=== PATIENT | female | born 1960 | race African-American/Black ===

== ENCOUNTER 2017-07-23 13:35 | Outpatient (CLI) | payer OTHER ==
--- NOTE | 2017-07-23 15:59 | RAD ---
LUMBAR SPINE FOUR VIEWS: 07/23/17 HISTORY: 56-year-old female with lumbar radiculopathy and chronic low back pain with pain in legs and hips wit h back spasms. Disc spaces are adequately preserved. No evidence for fracture or dislocation or significant malalign ment. No evidence of abnormal translation between flexion and extension. No acute compression fractur e. IMPRESSION: Minimal changes of spondylosis. No fracture or dislocation. POS: [facility]
--- NOTE | 2017-07-23 16:02 | RAD ---
LATERAL, FLEXION, EXTENSION AND AP VIEWS CERVICAL SPINE IS OBTAINED 07/23/17 Cervical spine radiographs demonstrate fusion of the C4, C5 and C6 vertebrae. There is ACDF with plat e and screws across the anterior aspect of the C5-6 disc space. The C4-5 level appears to have previo usly been fused. Small anterior osteophytes seen along the anterior aspect of C3-4 and to a lesser degree the C6-7 dis c space. No acute fracture is seen. No significant amaury or retrolisthesis seen on flexion or extens ion views. IMPRESSION: C4, C5 and C6 cervical spine fusion. POS: [facility]
--- NOTE | 2017-07-23 21:59 | MRI ---
EXAM: MRI CERVICAL SPINE WITH AND WITHOUT CONTRAST 07/23/17 HISTORY: Cervical stenosis. C5-C6 fusion. Chronic neck pain, radiating down both arms. COMPARISON: None. TECHNIQUE: Cervical spine MRI is performed with and without intravenous gadolinium administration. Multisequenti al, multiplanar imaging is performed. FINDINGS: Anterior fusion changes at C5-C6 with associated metallic susceptibility artifact. Remaining cervical vertebrae have appropriate narrow signal intensity. No evidence of fracture. No significant STIR hyp erintensity to suggest edema or ligamentous injury. No abnormal enhancement. Visualized brain parenchyma, cervicomedullary junction, cervical cord and the upper thoracic cord hav e a normal size and signal intensity. On the postcontrast images, there is no abnormal enhancement of the cord. C2-C3: Central disc osteophyte complex abutting the ventral thecal sac. No significant mass effect up on the cervical cord. No high grade central canal stenosis. Neural foramina are patent. C3-C4: Broad based disc osteophyte complex with a central component. There is deformity of the ventra l thecal sac and mild deformity of the cord. No T2 hyperintensity of the cord. Mild central canal rd nosis. Degenerative changes in bilateral uncovertebral joints results in moderate bilateral foraminal narrowing. C4-C5: Broad based disc osteophyte complex abuts the thecal sac. Mild central canal stenosis. No T2 h yperintensity of the cord. Neural foramina are patent bilaterally. C5-C6: Broad based disc osteophyte complex. Ventral subarachnoid space is effaced. Mild central canal stenosis. Degenerative changes in bilateral uncovertebral joints result in moderate bilateral forami nal narrowing. C6-C7: Disc osteophyte complex abuts the thecal sac. Ventral subarachnoid space is effaced. Mild to m oderate central canal stenosis. No T2 hyperintensity in the cord. Degenerative changes in bilateral u ncovertebral joints results in mild bilateral foraminal narrowing. C7-T1: No significant disc osteophyte complex. No significant central canal stenosis. Foramina are pa tent. The left vertebral artery flow void is not appreciated. IMPRESSION: 1. Postsurgical changes and degenerative changes of the cervical spine as above. 2. Absent left vertebral artery flow void. Left vertebral body occlusion cannot be excluded. POS: [facility]
--- NOTE | 2017-07-23 22:05 | MRI ---
EXAM: THORACIC SPINE MRI WITHOUT CONTRAST 07/23/17 HISTORY: Chronic back pain radiating down both arms. COMPARISON: None. TECHNIQUE: Thoracic spine MRI is performed without intravenous gadolinium administration. Multisequential, multi planar imaging is performed. FINDINGS: An appropriate T1 marrow signal intensity of the thoracic vertebra. Thoracic spine vertebral body hei ght is maintained. There is no fracture. There is T1 hypointensity with associated T2 and STIR hyperi ntensity involving the right aspect of the T10 vertebral body. No significant STIR hyperintensity to suggest edema or ligamentous injury due to fracture. Visualized mediastinal structures are unremarkable. Visualized lung parenchyma and solid organs are u nremarkable. Thyroid gland appears to be slightly heterogeneous. The thoracic cord has an overall normal size and signal intensity. No significant stenosis. Conus med ullaris terminates at the T12-L1 disc space. Throughout the thoracic spine, no high grade central canal stenosis or high grade foraminal narrowing . IMPRESSION: 1. No high grade central canal stenosis, high grade foraminal narrowing. 2. T1 hypointensity with associated T2 hyperintensity/STIR hyperintensity at T10. Atypical heman gioma is favored. Confirmation with thoracic spine CT is recommended. POS: [facility]
--- NOTE | 2017-07-23 22:14 | MRI ---
MRI LUMBAR SPINE WITHOUT CONTRAST 07/23/17 HISTORY: Chronic back pain. Pain radiates down both legs and hips. COMPARISON: None. TECHNIQUE: Lumbar spine MRI is performed without contrast administration. Multisequential, multiplanar imaging i s performed. FINDINGS: Appropriate T1 marrow signal intensity of lumbar vertebrae. Lumbar spine vertebral body height is teofilo ntained. There is no fracture. No significant STIR hyperintensity to suggest edema or ligamentous inj ury. There is appropriate signal in visualized solid organs. Symmetric signal intensity in the psoas muscl es. Conus medullaris terminates at the T12-L1 disc space level. T12-L1: No significant central canal stenosis or foraminal narrowing. L1-L2: Adequate disc hydration. No significant central canal stenosis or foraminal narrowing. L2-L3: Adequate disc hydration. No significant central canal stenosis or foraminal narrowing. Mild li gamentum flavum thickening and facet hypertrophy. L3-L4: Adequate disc hydration. No significant central canal stenosis or foraminal narrowing. Mild li gamentum flavum thickening and facet hypertrophy. L4-L5: Adequate disc hydration. No significant central canal stenosis. There is mild ligamentum flavu m thickening. Neural foramina are patent. L5-S1: No significant posterior disc abnormality. No significant central canal stenosis. Neural ronni liam are patent bilaterally. IMPRESSION: No significant central canal stenosis or foraminal narrowing. POS: [facility]
== END 2017-07-23 13:36 | disposition home or self-care (01) ==
LOC: SCSMRI 13:35
PROVIDERS: ATTEND Surgery
DX: M47.26 Other spondylosis with radiculopathy, lumbar region (principal); M54.6 Pain in thoracic spine; M48.02 Spinal stenosis, cervical region; Z95.1 Presence of aortocoronary bypass graft
CPT/HCPCS: 72050; 72110; 72146; 72148; 72156

== ENCOUNTER 2017-09-23 13:27 | Outpatient (CLI) | payer OTHER ==
[2017-09-23] MEDS ORDERED: Gadobenate Dimeglumine 529 MG/1 ML (20ML VIAL) ONE (14:34)
--- NOTE | 2017-09-23 15:23 | MRI ---
MRA BRAIN: Date: 09/23/17 HISTORY: 57-year-old female with history of generalized weakness and gait difficulty. Chronic headache. FINDINGS: The right vertebral artery is a dominant vertebral artery with a very tiny incompletely visualized se verely hypoplastic left vertebral artery. Prominent bilateral posterior communicators feeding right a nd left posterior cerebral arteries. IMPRESSION: Very small, incompletely visualized, severely hypoplastic left vertebral artery. Large bilateral post erior communicators feeding right and left posterior cerebral arteries. No evidence for other major b ranch occlusion or aneurysm. POS: [facility]
--- NOTE | 2017-09-23 15:40 | MRI ---
NECK MRA WITH AND WITHOUT IV CONTRAST: 09/23/17 HISTORY: 57-year-old female with generalized weakness and gait difficulty and chronic headache. The origin of the left carotid, subclavian, and innominate arteries are not completely included on th is study. The right and left common, internal, and external carotid arteries show no evidence for sig nificant stenosis. There is essentially nonexistent flow within the region of the left vertebral lizzie ry with a somewhat dominant right vertebral artery. There is a very tiny amount of flow seen in a luis angel y tiny left vertebral artery, possibly backflow from the right vertebral flow into the basilar. IMPRESSION: No flow within the left vertebral artery with a very tiny distal left vertebral artery, possibly back flow from right vertebral flow into the basilar. This is probably developmental, severely hypoplastic /aplastic left vertebral artery. No hemodynamically stenosis involving the right or left carotid lizzie ry system. POS: [facility]
--- NOTE | 2017-09-23 18:56 | MRI ---
MRI OF BRAIN WITH AND WITHOUT CONTRAST: 09/23/17 Multiplanar and multisequential imaging of brain obtained. Postcontrast images are obtained after the administration of 14 mL of Multihance IV. HISTORY: Weakness. Chronic headache. Gait difficulty. FINDINGS: Ventricles have normal size and position. No evidence of restricted diffusion. There are white matter abnormalities seen in both cerebral hemispheres. Numerous white matter hyperin tensities are seen in the centrum semiovale and periventricular white matter. These lesions align davi ewhat perpendicular to the lateral ventricles. While these are nonspecific in a patient of this age, the number and extent of these lesions are abnormal. These lesions are nonspecific, however, the hist ory of gait disturbance raise the possibility of a demyelinating process. No enhancement is seen associated with these lesions. The intracranial internal carotid arteries and proximal cerebral arteries show normal flow voids. The dural venous sinuses are patent. There is a small focal area of decreased signal seen in the brain stem at the level of the lower shravan in the midline. This tiny lesion measures approximately 5 mm AP dimension and exhibits low to isoint ense signal on T1 noncontrast and iso to low intense signal on T2. It shows some faint peripheral enh ancement on postcontrast. It does show blooming low intensity on gradient echo. 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 No other abnormality identified. IMPRESSION: 1. There are numerous scattered white matter signal abnormalities seen in both cerebral hemisphe res. The number of these are abnormal in a patient of this age. While these are nonspecific, the orie ntation of several of these lesions is worrisome for demyelinating process especially given the histo ry of gait disturbance. Recommend clinical correlation and other investigation as indicated. 2. There is a focal signal abnormality in the brain stem at inferior shravan. The signal characteri stics described above are most compatible with capillary telangiectasia. POS: [facility]
== END 2017-09-23 13:28 | disposition home or self-care (01) ==
LOC: TBSIIMAG 13:27
PROVIDERS: ATTEND Surgery
DX: R53.1 Weakness (principal); R26.9 Unspecified abnormalities of gait and mobility; R93.0 Abnormal findings on diagnostic imaging of skull and head, not elsewhere classified
CPT/HCPCS: 70544; 70549; 70553; A9579

== ENCOUNTER 2017-12-08 10:08 | Outpatient (CLI) | payer OTHER ==
--- NOTE | 2017-12-08 12:17 | MRI ---
MRI RIGHT KNEE WITHOUT CONTRAST: Date: 12/08/17 HISTORY: N25.561, right knee pain. COMPARISON: None. FINDINGS: Medial Meniscus: Intact. Lateral Meniscus: Intact. Mild mucinous degeneration of the anterior cruciate ligament. Posterior cruciate ligament is intact. MCL and LCL are intact. Extensor Mechanism: Quadriceps tendon, patella, and patella tendon are all intact. Cartilage: Patellofemoral compartment: Intact. Medial compartment: Intact. Lateral compartment: Intact. Soft Tissues: Normal. Bones: There is moderate degenerative disease at the proximal tibiofibular joint with subchondral cyst and o steophyte formation. Muscles: The muscle signal and bulk is normal. IMPRESSION: 1. Moderately advanced degenerative disease proximal tibiofibular joint with osteophyte formation an d subchondral cyst. No acute internal derangement. 2. Mild mucinous degeneration of the anterior cruciate ligament. POS: [facility]
== END 2017-12-08 10:09 | disposition home or self-care (01) ==
LOC: SCSMRI 10:08
PROVIDERS: ATTEND Orthopaedic Surgery
DX: M25.561 Pain in right knee (principal); M17.11 Unilateral primary osteoarthritis, right knee

== ENCOUNTER 2018-12-17 09:31 | Outpatient (CLI) | payer OTHER ==
--- NOTE | 2018-12-17 10:33 | MRI ---
Cervical spine MRI without contrast: 12/17/2018 COMPARISON: 07/23/2017 HISTORY: Cervical spondylosis with radiculopathy, prior cervical spine surgery. Upper extremity shoot ing pains, bilateral upper extremity radiculopathy TECHNIQUE: Multiplanar multisequence MR imaging of cervical spine without contrast obtained. FINDINGS: The sagittal STIR imaging demonstrates no focal area of osseous marrow edema. Anterior disc ectomy and fusion hardware is present at C5-6, a stable finding. There is absence of the normal left vertebral artery flow void suggesting left vertebral artery occlu selvin, stable. C2-3: There is disc space narrowing and disc desiccation. There is a central disc herniation which ef faces the ventral thecal sac and abuts the ventral aspect of the cord with a mild degree of central canal stenosis, stable. No significant neural foraminal stenosis on either side. C3-4: There is disc space narrowing, disc desiccation, and disc bulge with small central disc protrus ion, unchanged when compared the prior exam. This effaces the ventral thecal sac and abuts the ventral aspect of the cord with stable mild central canal stenosis. Bilateral facet and uncovertebral osteophyte formation present, right greater than left. No significant left neural foraminal stenosis. Mild/moderate right neural foraminal stenosis. C4-5: Partial fusion of intervertebral disc space noted, stable. No central canal or neural foraminal stenosis. C5-6: Stable small disc osteophyte complex partially effacing ventral thecal sac. Mild stable central canal stenosis. Severe left neural foraminal stenosis on the basis of facet and uncovertebral osteophyte formation, unchanged. No significant right neural foraminal stenosis. C6-7: There is disc space narrowing and disc desiccation. Stable disc bulge effaces ventral thecal sa c and abuts ventral aspect of cord with stable moderate central canal stenosis. No significant neural foraminal stenosis. C7-T1: Disc space narrowing and disc desiccation. Small disc protrusion in the right paracentral elisabeth on with mild associated right neural foraminal stenosis, new. No significant central canal or left neural foraminal stenosis. Heterogeneity and prominence of the right lobe of the thyroid gland noted. No focal area of abnormal signal intensity is identified within the cervical cord. IMPRESSION: Multilevel postoperative and degenerative change involving the cervical spine as detailed above. Occluded left vertebral artery.
--- NOTE | 2018-12-17 11:00 | RAD ---
SINGLE LATERAL VIEW CERVICAL SPINE: Date: 12/17/18 HISTORY: Neck pain. COMPARISON: Previous radiograph of cervical spine from 07/23/17. FINDINGS: Single lateral view of cervical spine demonstrates previous old C4-5 cervical spine fusion. ACDF plat es and screws, as well as intervertebral disc hardware material is seen in the C5-6 disc space and di sc levels. Area of radiolucency remains at the C5-6 disc space, suggesting that this level may not torres ve completely fused in a bony manner. There appear to be some increasing anterior osteophytes of the anterior inferior aspect of the C6 luis angel tebral body. IMPRESSION: C4-5 previous fusion with post C5-6 fusion hardware placement. I am not sure if the C5-6 level is fus ed yet. Adjacent areas of post fusion spondylosis seen at C3-4 and C6-7 adjacent disc levels. POS: [facility]
== END 2018-12-17 09:32 | disposition home or self-care (01) ==
LOC: SCSMRI 09:31
PROVIDERS: ATTEND Anesthesiology Pain Medicine
DX: M47.22 Other spondylosis with radiculopathy, cervical region (principal); I65.02 Occlusion and stenosis of left vertebral artery; M25.78 Osteophyte, vertebrae; M48.02 Spinal stenosis, cervical region; M50.11 Cervical disc disorder with radiculopathy, high cervical region; Z98.1 Arthrodesis status
CPT/HCPCS: 72052; 72141

== ENCOUNTER 2019-03-19 07:29 | Outpatient (CLI) | payer BC, MEDICARE ==
--- NOTE | 2019-03-19 08:49 | CT ---
CT Cervical Spine WO Con History: Neck pain Comparison: Radiograph December 17, 2018. MRI December 17, 2018 Findings: No acute fracture or malalignment. There is fusion of the C4/C5 facet joints as well as of the disc space. ACDF hardware at C5/C6 with satisfactory position of the discectomy cage. Atrophy of the left lower thyroid versus prior surgery. Multiple nodules of the right lobe of the thy roid. The apices are without mass. Levels are as follows: C2/C3: Mild uncinate process hypertrophy. Central posterior disc protrusion na rrowing the spinal canal to approximately 6 mm. No neural foraminal narrowing appreciated. C3/C4: Broad-based posterior disc extrusion. Moderate uncinate process approximately. Spinal canal is narrowed to approximately 7 mm. Moderate bilateral neural foraminal narrowing. C4-5: Fusion of the intervertebral space. No neural foraminal or spinal canal narrowing. C5/C6, prior discectomy and anterior spinal fusion. There is a right paracentral and lateral recess p osterior disc protrusion narrowing the spinal canal to approximately 7 mm or 6 mm. Moderate to severe right and moderate to severe left neural foraminal narrowing. C6/C7: Broad-based posterior disc protrusion narrows spinal canal to approximately 7 mm. Protrusion e xtensive left lateral recess and subfrontal zone causing moderate to severe left neural foraminal narrowing. Moderate right neural foraminal narrowing. C7/T1: Low-grade broad-based posterior disc protrusion greatest in the right subfrontal zone. Moderat e to severe right and moderate left neural foraminal narrowing. Impression: 1. Multilevel spondylosis due to predominantly disc protrusions causing multifocal neural foraminal a nd spinal canal narrowing. 2. Multiple right thyroid lobe nodules with prior left thyroidectomy. Ultrasound recommended if clini beth warranted.
== END 2019-03-19 07:30 | disposition home or self-care (01) ==
LOC: SCSCT 07:29
PROVIDERS: ATTEND Surgery
DX: M50.20 Other cervical disc displacement, unspecified cervical region (principal); M48.02 Spinal stenosis, cervical region; M47.812 Spondylosis without myelopathy or radiculopathy, cervical region; E04.2 Nontoxic multinodular goiter; E89.0 Postprocedural hypothyroidism
CPT/HCPCS: 72125

== ENCOUNTER 2019-07-28 12:56 | Day surgery (SDC) | payer MEDICARE ==
[2019-07-27 11:34] VITALS: BMI 25.6
[~2019-07-28 12:56] MED LIST: Lidocaine 1% PF 5 ML VIAL ONE; PROPOFOL 200 MG/20 ML VIAL ONE
[2019-07-28] MEDS ORDERED: Fentanyl 100 MCG/2 ML VIAL ONE ×2 (14:49→17:18)
[2019-07-28] MEDS ORDERED: Midazolam HCl 2 mg/2 ml Vial ONE (14:49)
[2019-07-28] MEDS ORDERED: Bupivacaine PF 0.5% 30 ML VIAL ONE (14:53)
[2019-07-28] MEDS ORDERED: Propofol 500 MG/50 ML VIAL ONE (14:53)
[2019-07-28] MEDS ORDERED: EPINEPHrine 1 MG/ML AMP ONE (14:53)
[2019-07-28] MEDS ORDERED: Sodium Chloride 0.9% 10 ML ONE (14:53)
[2019-07-28] MEDS ORDERED: Sodium Chloride 0.9% 0 ML ONE (15:10)
[2019-07-28] MEDS ORDERED: CEFAZOLIN 1 GM VIAL ONE (15:10)
[2019-07-28] MEDS ORDERED: Sodium Chloride 0.9% 100 ML ONE (15:12)
[2019-07-28] MEDS ORDERED: Thrombin 5000 UNITS/5 ML VIAL ONE (16:28)
--- NOTE | 2019-07-28 16:53 | RAD ---
XR Thoracic Spine 1 View History: Dorsal pain stimulator Comparison: None. Findings: Single fluoroscopic image was obtained with dorsal column stimulator with electrode tip pro jecting at the mid C6 level. Impression: Dorsal column stimulator electrode tip is described.
[2019-07-28] MEDS ORDERED: HYDROcodone/Acetaminophen 5/325 mg Tablet ONE ×2 (17:59→18:07)
--- NOTE | 2019-07-29 01:03 | OP ---
DATE OF PROCEDURE: 07/28/2019 PREOPERATIVE DIAGNOSES: 1. Postlaminectomy syndrome, cervical, with bilateral upper extremity neuropathic pain. 2. Chronic pain syndrome. 3. Complex regional pain syndrome. POSTOPERATIVE DIAGNOSES: 1. Postlaminectomy syndrome, cervical, with bilateral upper extremity neuropathic pain. 2. Chronic pain syndrome. 3. Complex regional pain syndrome. PROCEDURES PERFORMED: 1. Implantation of a right spinal cord stimulation electrode array with the distal tip at C5. 2. Implantation of a left spinal cord stimulation electrode array with the cephalad tip at C5 to allow parallel with the 1st. 3. Implantation of IPG. 4. Intraoperative programming. 5. Fluoroscopic guidance. ANESTHESIA: TIVA. BLOOD LOSS: 20 mL. DESCRIPTION OF PROCEDURE: Risks and benefits were discussed. Informed consent was obtained, was taken to the OR prepped and draped in standard fashion. Fluoroscopic guidance was used to identify the thoracolumbar space. Interspace at L1-L2 was chosen as the entry into the epidural space. Incision was made after adequate local anesthesia down to the supraspinous ligament at L1-L2, using the Bovie and Metzenbaum for dissection, hemostasis and dissection. The supplied Tuohy needle was advanced, paramedian approach, L1-L2, loss of resistance technique. Both right and left paramedian approach. One pass, no paresthesia, CSF for heme. First electrode was passed over the dorsal columns with the cephalad tip at the C5 level. The next electrode was passed to lie parallel with the 1st with the cephalad tip at C5. Intraoperative programming achieved with appropriate neck and bilateral arm stimulation concordant and overlapping with the pain pattern. The stylets were removed intact. The needles were removed intact. Both the supplied anchors were slipped over the lead and each was secured with two 2-0 silk sutures. The anchors were locked into place. A pocket was then made in the left buttock. Incision was made, blunt dissection. Fascia was identified, undermined, tunneling between incisions was made utilizing the straw tunneler. Leads were passed, straw removed, leads connected to IPG and the set screws were tightened using the supplied ratcheted screwdriver. All leads were identified to have a low impedance and functional. IPG was placed in the pocket, riding side out. Prior to closure, all counts were correct x2. Closure was accomplished in layers with interrupted 2-0 Vicryl and the skin was closed with a running subcuticular 3-0 Rapide. Dermabond, 4x4s, and Medipore tape were used for dressing. Job ID: [id number]
== END 2019-07-28 18:55 | disposition home or self-care (01) ==
LOC: SDC 12:56
PROVIDERS: ATTEND Anesthesiology Pain Medicine
PROC: 0JH70DZ Insertion of Multiple Array Stimulator Generator into Back Subcutaneous Tissue and Fascia, Open Approach (ICD-10-PCS; principal; 2019-07-28)
PROC: 00HU3MZ Insertion of Neurostimulator Lead into Spinal Canal, Percutaneous Approach (ICD-10-PCS; 2019-07-28)
DX: M96.1 Postlaminectomy syndrome, not elsewhere classified (principal); G89.4 Chronic pain syndrome; G90.50 Complex regional pain syndrome I, unspecified; G62.9 Polyneuropathy, unspecified; M48.02 Spinal stenosis, cervical region; M54.12 Radiculopathy, cervical region; E89.0 Postprocedural hypothyroidism; K21.9 Gastro-esophageal reflux disease without esophagitis; D64.9 Anemia, unspecified; E11.9 Type 2 diabetes mellitus without complications; E78.5 Hyperlipidemia, unspecified; Z79.82 Long term (current) use of aspirin; Z79.84 Long term (current) use of oral hypoglycemic drugs; Z79.899 Other long term (current) drug therapy; Z88.5 Allergy status to narcotic agent; Z98.1 Arthrodesis status
CPT/HCPCS: 72020; 76000; 93005; 93010; C1767; J0171; J0690; J2001; J2250; J2704; J3010; J3490; S0020

== ENCOUNTER 2019-09-30 12:16 | Outpatient (CLI) | payer MEDICARE ==
--- NOTE | 2019-09-30 13:36 | RAD ---
RIGHT HIP TWO VIEWS: 09/30/19 HISTORY: Right hip pain. FINDINGS/IMPRESSION: There are degenerative changes. No fracture or dislocation or bony destruction identified. POS: [facility]
--- NOTE | 2019-09-30 13:38 | RAD ---
RIGHT HAND THREE VIEWS: 09/30/19 HISTORY: Right hand pain and swelling. FINDINGS/IMPRESSION: Degenerative changes are present. No acute fracture or dislocation or bony destruction identified. POS: [facility]
--- NOTE | 2019-09-30 13:39 | RAD ---
LEFT HAND THREE VIEWS: 09/30/19 HISTORY: Swelling and pain in the left hand. FINDINGS/IMPRESSION: There are degenerative changes most prominent at the IP joint of the thumb. No fracture, dislocation or bony destruction identified. POS: [facility]
--- NOTE | 2019-09-30 14:35 | ULT ---
LEFT UPPER EXTREMITY VENOUS DUPLEX EXAM. HISTORY: Left upper extremity pain. Palpable area just below the level of the elbow. FINDINGS: Real-time color Doppler evaluation of the left upper extremity was performed to include the internal jugular subclavian, axillary, brachial, basilic, and cephalic veins as well as forearm veins. This s hows a patent deep venous system with normal compressibility and augmentation. Just below the level of the elbow on the medial side according to the technologist is a cystic-appear ing structure which compresses. This is directly adjacent to a superficial vein. This was discussed with the technologist on image #[id number]. Compression view shows that this density completely compresses. On one of the images, there is questionable flow, but the technologist says that was incorrect and that was just artifactual and no flow was demonstrated within this. It does appear to cause some mas s-like impression on the vein in this area. IMPRESSION: 1. No evidence of deep vein thrombosis. 2. [place]-shaped cystic structure measuring 12 mm in length directly adjacent to a superficial vein on the medial side of the forearm just below the level of the elbow. It does cause an impression on the adjacent vein but shows no flow within it and does completely compress. I think it is still poss ible it may represent some type of diverticular outpouching of the vein that does not show flow. The fact that it completely compresses and does not show flow would indicate that this is not a soft tis nilson mass such as a lymph node. Clinical followup is suggested. If this enlarges, a repeat ultrasoun d may be helpful in assessment. POS: [facility]
== END 2019-09-30 12:17 | disposition home or self-care (01) ==
LOC: BICULT 12:16
PROVIDERS: ATTEND Family Medicine
DX: M79.602 Pain in left arm (principal); M25.551 Pain in right hip; M79.89 Other specified soft tissue disorders; M18.9 Osteoarthritis of first carpometacarpal joint, unspecified; M19.041 Primary osteoarthritis, right hand; M16.11 Unilateral primary osteoarthritis, right hip
CPT/HCPCS: 36415; 80053; 80061; 82043; 82607; 84550; 85025

== ENCOUNTER 2020-12-22 13:08 | Outpatient (CLI) | payer MEDICARE | END 2020-12-22 13:09 | disposition home or self-care (01) | LOC: BICRAD 13:08 | PROVIDERS: ATTEND Family Medicine | DX: R06.02 Shortness of breath (principal) | CPT/HCPCS: 36415; 71046; 80053; 83880; 85025 ==

== ENCOUNTER 2025-06-22 14:08 | Outpatient (CLI) | payer MEDICARE | END 2025-06-22 14:09 | disposition home or self-care (01) | LOC: SCSRAD 14:08 | PROVIDERS: ATTEND Family Medicine | DX: M79.674 Pain in right toe(s) (principal) ==